=== PATIENT | female | born 1970 | race Hispanic/Latino ===

== ENCOUNTER 2017-05-01 18:55 | Emergency (ER) | payer OTHER, BC ==
[2017-05-01 19:02] VITALS: RESP 18; TEMP 97.9
[2017-05-01 19:03] VITALS: BMI 20.2
[2017-05-01] MEDS ORDERED: Apap-Butalbital-Caffeine 325-50-40mg Tab PO STA (19:16)
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
[2017-05-01 21:11] VITALS: BP 119/79; PULSE 79; O2SAT 98
--- NOTE | 2017-05-02 09:40 | RAD ---
PROCEDURE: Left Knee Radiographs. HISTORY: Pain. COMPARISON: None. FINDINGS: BONES: Normal. No fracture. JOINTS: Normal. No osteoarthritis. JOINT EFFUSION: None. OTHER FINDINGS: None. IMPRESSION: Normal radiographs of the left knee.
== END 2017-05-01 21:10 | disposition home or self-care (01) ==
LOC: ED 18:55
DX: S16.1XXA Strain of muscle, fascia and tendon at neck level, initial encounter (principal); S83.92XA Sprain of unspecified site of left knee, initial encounter; V43.52XA Car driver injured in collision with other type car in traffic accident, initial encounter; I10 Essential (primary) hypertension